=== PATIENT | male | born 1955 | race Caucasian/White ===

== ENCOUNTER 2022-07-13 06:55 | Day surgery (SDC) | payer BC ==
[2022-07-08 11:28] LABS: BASOPHILS # (AUTO) 0.1 X10'3 (0-0.2); BASOPHILS % (AUTO) 0.8 % (0-1); EOSINOPHILS # (AUTO) 0.1 X10'3 (0-0.9); EOSINOPHILS % (AUTO) 1.8 % (0-6); LYMPHOCYTES # (AUTO) 0.9 X10'3 (1.1-4.8); LYMPHOCYTES % (AUTO) 13.5 % (21-51); MEAN CORPUSCULAR HEMOGLOBIN 31.7 PG (27.0-31.0); MEAN CORPUSCULAR HGB CONC 33.2 g/dL (33.0-36.5); MEAN CORPUSCULAR VOLUME 95.6 FL (78-98); MEAN PLATELET VOLUME 9.2 FL (7.4-10.4); MONOCYTES # (AUTO) 0.7 X10'3 (0-0.9); NEUTROPHILS # (AUTO) 5.1 X10'3 (1.8-7.7); NEUTROPHILS % (AUTO) 73.9 % (42-75); PRE OP HEMATOCRIT 41.7 % (42.0-52.0); PRE OP HEMOGLOBIN 13.8 g/dL (14.0-17.9); PRE OP PLATELET COUNT 206 X10'3 (140-440); RED BLOOD COUNT 4.36 X10'6 (4.70-6.10); RED CELL DISTRIBUTION WIDTH 13.4 % (11.5-14.5)
[2022-07-08 11:44] LABS: ALBUMIN 3.9 G/DL (3.4-5.0); ALBUMIN/GLOBULIN RATIO 1.2 (1.1-1.5); ALKALINE PHOSPHATASE 93 IU/L (46-116); BLOOD UREA NITROGEN 20 MG/DL (7-18); BUN/CREATININE RATIO 22.2 (10.0-20.0); CALCIUM 9.5 MG/DL (8.5-10.1); CHLORIDE 104 MMOL/L (99-107); PRE OP ALT 32 U/L (30-65); PRE OP ANION GAP 4 (8-16); PRE OP AST 25 U/L (10-37); PRE OP BILIRUB, TOTAL 0.6 MG/DL (0.0-1.0); PRE OP GLUCOSE 140 MG/DL (70-104); PRE OP POTASSIUM 3.6 MMOL/L (3.4-5.1); PRE OP SODIUM 139 MMOL/L (135-145); TOTAL CARBON DIOXIDE 30.8 MMOL/L (24-32); TOTAL PROTEIN 7.1 G/DL (6.4-8.2); eGFR 84 ML/MIN
[~2022-07-13] VITALS: Ht 172.7 cm; Wt 90.6 kg
[~2022-07-13 06:55] MED LIST: AMLO10TA13 PO; ATOR20TA66 PO; BUPIVAcaine/PF 2.5mg/ml (0.25%) 10ml vial ONE; CLOP75TA34 PO; DOCUMENT DATE & TIME OF BETA-BLOCKER PO ONE; GLUCOSAMINE; LOSA1TAB39 PO; METO50TA16 PO; MULTIVITAMIN; QUINOL; [UNRECOGNIZED DRUG - CODE] PO; cefazolin 2gm/D5W 100mL 100 ML IV ONE; famotidine 20mg tablet PO ONE; ringers solution, lacted 1,000 ML IV SCH
[2022-07-13 07:30] VITALS: BP 127/74
[2022-07-13] MEDS ORDERED: morphine 4 MG/ML inj SYRINge IV PRN (07:55)
[2022-07-13] MEDS ORDERED: proCHLORperazine 10 MG/2 ml inj IV PRN (07:55)
[2022-07-13] MEDS ORDERED: meperidine/PF 25mg/ml syringe IV PRN ×3 (07:55)
[2022-07-13] MEDS ORDERED: morphine 2 MG/ML inj. syringe IV PRN (07:55)
[2022-07-13] MEDS ORDERED: ringers solution, lacted 1,000 ML IV SCH (07:55)
[2022-07-13] MEDS ORDERED: ondansetron/PF 4mg/2ml inj IV PRN (07:55)
[2022-07-13] MEDS ORDERED: LIDOcaine 0.5% (5mg/ml) 50ml vial ONE (09:38)
[2022-07-13] MEDS ORDERED: BUPIVAcaine/PF 2.5mg/ml (0.25%) 10ml vial IJ ONE (10:00)
[2022-07-13] MEDS ORDERED: fentaNYL/PF 50MCG/1 ML 2ML syringe ONE (10:05)
[2022-07-13] MEDS ORDERED: midazolam 1 mg/ML 2ml injection ONE (10:06)
[2022-07-13] MEDS ORDERED: propofol inj 20 ML IV ONE (10:30)
[2022-07-13 10:36] VITALS: BP 137/84
--- NOTE | 2022-07-13 10:36 | NUR ---
Received from OR via [facility], accompanied by Anesthesiologist and report given by Anesthesiolgist. DENIES PAIN. DRESSING TO RIGHT WRIST CDI, ICE APPLIED. 20G PIV TO LEFT HAND WITH LR INFUSING. VSS.
[2022-07-13 10:46] VITALS: BP 141/81
[2022-07-13 10:56] VITALS: BP 141/85
[2022-07-13 11:06] VITALS: BP 137/85
--- NOTE | 2022-07-13 11:08 | NUR ---
PATIENT MEETS DISCHARGE CRITERIA. DENIES PAIN. VSS. RIGHT DRESSING CDI, ICE IN PLACE. DISCHARGE INSTRUCTIONS REVIEWED. ALL BELONGINGS ACCOUNTED FOR. KIP IS RIDE HOME.
== END 2022-07-13 11:16 | disposition home or self-care (01) ==
LOC: PAS 06:55
PROVIDERS: ATTEND Orthopaedic Surgery Hand Surgery
DX: G56.01 Carpal tunnel syndrome, right upper limb (principal); G47.30 Sleep apnea, unspecified; E78.5 Hyperlipidemia, unspecified; I10 Essential (primary) hypertension; M17.0 Bilateral primary osteoarthritis of knee; Z98.890 Other specified postprocedural states; Z79.899 Other long term (current) drug therapy; Z87.891 Personal history of nicotine dependence; Z72.89 Other problems related to lifestyle; Z86.73 Personal history of transient ischemic attack (TIA), and cerebral infarction without residual deficits
CPT/HCPCS: 29848; 36415; 80053; 82948; 85025; 93005; J0690; J2250; J2704; J3010; J3490; J7030; J7120; Z7506; Z7512; A4215; A7000

== ENCOUNTER 2022-08-20 06:35 | Observation (INO) | payer BC ==
[2022-08-13 11:50] LABS: BASOPHILS # (AUTO) 0.1 X10'3 (0-0.2); BASOPHILS % (AUTO) 0.8 % (0-1); EOSINOPHILS # (AUTO) 0.1 X10'3 (0-0.9); LYMPHOCYTES % (AUTO) 14.5 % (21-51); MEAN CORPUSCULAR HEMOGLOBIN 31.7 PG (27.0-31.0); MEAN CORPUSCULAR HGB CONC 33.1 g/dL (33.0-36.5); MEAN CORPUSCULAR VOLUME 95.9 FL (78-98); MEAN PLATELET VOLUME 8.8 FL (7.4-10.4); MONOCYTES # (AUTO) 0.6 X10'3 (0-0.9); MONOCYTES % (AUTO) 8.7 % (2-12); NEUTROPHILS # (AUTO) 5.1 X10'3 (1.8-7.7); PRE OP HEMATOCRIT 42.8 % (42.0-52.0); PRE OP HEMOGLOBIN 14.1 g/dL (14.0-17.9); PRE OP PLATELET COUNT 235 X10'3 (140-440); RED BLOOD COUNT 4.46 X10'6 (4.70-6.10); RED CELL DISTRIBUTION WIDTH 13.5 % (11.5-14.5)
[2022-08-13 11:57] LABS: ALBUMIN 3.9 G/DL (3.4-5.0); ALBUMIN/GLOBULIN RATIO 1.1 (1.1-1.5); ALKALINE PHOSPHATASE 91 IU/L (46-116); BLOOD UREA NITROGEN 18 MG/DL (7-18); BUN/CREATININE RATIO 18.4 (10.0-20.0); CALCIUM 9.3 MG/DL (8.5-10.1); CHLORIDE 104 MMOL/L (99-107); CREATININE 0.98 MG/DL (0.60-1.10); PRE OP ALT 31 U/L (30-65); PRE OP ANION GAP 8 (8-16); PRE OP AST 20 U/L (10-37); PRE OP BILIRUB, TOTAL 0.6 MG/DL (0.0-1.0); PRE OP GLUCOSE 154 MG/DL (70-104); PRE OP POTASSIUM 3.9 MMOL/L (3.4-5.1); PRE OP SODIUM 140 MMOL/L (135-145); TOTAL CARBON DIOXIDE 28.5 MMOL/L (24-32); TOTAL PROTEIN 7.4 G/DL (6.4-8.2); eGFR 76 ML/MIN
[2022-08-20] VITALS (19 sets, daily range): BP systolic 105–158; BP diastolic 56–84
[~2022-08-20] VITALS: Ht 172.7 cm; Wt 89.2 kg
[~2022-08-20 06:35] MED LIST changes: -BUPIVAcaine/PF 2.5mg/ml (0.25%) 10ml vial ONE; +acetaminophen 325mg tablet PO ONE; +celeCOXIB 100mg capsule PO ONE; +gabapentin 300mg capsule PO ONE; +metoclopramide 5 mg/ml inj IV ONE; +oxyCODONE SR 10mg (sust. release) tab -2 tabs (20mg) PO ONE; +tranexamic acid inj. 1,000 MG in normal saline IV soln 100ML IV ONE; +vancomycin 1,500 MG in NS 300ml IV soln IV ONE
--- NOTE | 2022-08-20 06:45 | NUR ---
CSM: Pedal pulses present and marked. Mupirocin cream was not ordered for this patient. Patient read the brochure. Educated patient on the use of the IS and its importance. Hibiclens used for 5 days.
[2022-08-20] MEDS ORDERED: diphenhydrAMINE 25mg capsule PO PRN ×2 (07:30)
[2022-08-20] MEDS ORDERED: ondansetron/PF 4mg/2ml inj IV PRN ×2 (07:30→11:10)
[2022-08-20] MEDS ORDERED: magnesium hydroxide 30ml (MOM) UD suspension PO PRN (07:30)
[2022-08-20] MEDS ORDERED: acetaminophen 325mg tablet PO PRN (07:30)
[2022-08-20] MEDS ORDERED: naloxone 0.4 mg/ml inj IV PRN (07:30)
[2022-08-20] MEDS ORDERED: HYDROcodone/acetaminophen 10/325mg tab PO PRN (07:30)
[2022-08-20] MEDS ORDERED: HYDROmorphone inj. 0.5 MG/0.5 ML DISP.SYRIN IV PRN (07:30)
[2022-08-20] MEDS ORDERED: bisacodyl 10mg suppository rectal RC PRN (07:30)
[2022-08-20] MEDS ORDERED: vancomycin 1,000mg inj ONE (09:12)
[2022-08-20] MEDS ORDERED: MIDAZolam 1 MG/ML 5ML VIAL ONE (10:11)
[2022-08-20] MEDS ORDERED: fentaNYL/PF 50MCG/1 ML 2ML syringe ONE (10:11)
[2022-08-20] MEDS ORDERED: ROPIVAcaine 0.2% (10 MG/5 ML) BOLUS INJECTION ADDCANAL PRN (11:10)
[2022-08-20] MEDS ORDERED: proCHLORperazine 10 MG/2 ml inj IV PRN (11:10)
[2022-08-20] MEDS ORDERED: morphine 2 MG/ML inj. syringe IV PRN (11:10)
[2022-08-20] MEDS ORDERED: morphine 4 MG/ML inj SYRINge IV PRN (11:10)
[2022-08-20] MEDS ORDERED: ringers solution, lacted 1,000 ML IV SCH (11:10)
[2022-08-20] MEDS ORDERED: meperidine/PF 25mg/ml syringe IV PRN ×3 (11:10)
[2022-08-20] MEDS ORDERED: diphenhydrAMINE 50 mg/ml inj ONE (12:24)
[2022-08-20] MEDS ORDERED: ROPIVAcaine 0.5% (5mg/ml) 30ml vial ONE (12:24)
[2022-08-20] MEDS ORDERED: propofol inj 20 ML IV ONE (12:24)
[2022-08-20] MEDS ORDERED: dexamethasone sod phosphate 4mg/ml inj. ONE (12:24)
--- NOTE | 2022-08-20 12:30 | NUR ---
Received from OR via BED, accompanied by Anesthesiologist and report given by Anesthesiologist. PATIENT WAKING UP, NO S/S OF PAIN, V/S WNL, SCD ON, 20G TO LUE, YOLI drsg to RIGHT KNEE CDI with ON Q BALL AT 2ML/HR.
[2022-08-20] MEDS: ROPIVAcaine 0.2%/PF PUMP/bolus 545 ML ADDCANAL SCH (12:44)
[2022-08-20] MEDS ORDERED: tranexamic acid inj. 880 MG in normal saline 100ml IV soln 91.2 ML IV ONE (14:00)
--- NOTE | 2022-08-20 14:10 | NUR ---
PATIENT MEETS DISCHARGE CRITERIA. VSS. IV IN RFA 20 NO ISSUES. PATIENT ON 1 LITER O2 AT 96%. GAVE REPORT TO SHY ON ORTHO. ANOTHER RN TOOK PATIENT TO THE FLOOR
--- NOTE | 2022-08-20 14:46 | NUR ---
Patient in room PAS IN 900. I have received report from muna quiroz and had the opportunity to ask questions and assume patient care.
[2022-08-20] MEDS: HYDROcodone/acetaminophen 10/325mg tab PO PRN ×2 (15:41→20:02)
--- NOTE | 2022-08-20 15:56 | NUR ---
PER [facility] OR PT HAD IN THE SURGICAL SITE TRANSENAMIC ABOUT 11 AM, PT IS GOOD FOR HIS NEXT DOSE PER 3 HRS APART
--- NOTE | 2022-08-20 16:36 | NUR ---
per dr bryan pt can have tranexamic acid second dose, he had put order in stated.
[2022-08-20] MEDS: HYDROmorphone 1 mg/ml syringe IV PRN ×2 (17:51→23:15)
--- NOTE | 2022-08-20 18:13 | NUR ---
Problems reprioritized. Patient report given, questions answered & plan of care reviewed with harry quiroz.
[2022-08-20] MEDS: potassium cl 20mEq in 1/2 NS 1,000 ML IV SCH ×2 (19:57→21:00)
[2022-08-20] MEDS ORDERED: VANCOMYCIN 1,500MG inj. 1,500 MG in normal saline 500ml IV soln 300 ML IV ONE (20:00)
[2022-08-20] MEDS: ascorbic acid 500mg tablet PO SCH (20:02)
[2022-08-20] MEDS: metoprolol tartrate 50mg tablet PO SCH (20:03)
[2022-08-20] MEDS: gabapentin 300mg capsule PO SCH (20:03)
[2022-08-20] MEDS ORDERED: atorvastatin 20mg tablet PO SCH (21:00)
[2022-08-20] MEDS ORDERED: sennosides 8.6mg tablet PO SCH (21:00)
[2022-08-20] MEDS ORDERED: amLODIPine 5mg tablet PO SCH (21:00)
--- NOTE | 2022-08-21 00:56 | NUR ---
lenghtly discussion about pain medication, narcotics and non-narcotics, timing, and patient's need to notify nursing if he needs pain medication. pt had pain of zero and still wanted norco "b/c you told me i had to stay up on my pills". pt seems frustrated with education. will continue to follow up with patient and his pain levels. pt ok with being woken up at 0200 to see about pain levels.
[2022-08-21 01:15] VITALS: BP 161/84
[2022-08-21] MEDS: potassium cl 20mEq in 1/2 NS 1,000 ML IV SCH (05:00)
[2022-08-21] MEDS: metoprolol tartrate 50mg tablet PO SCH (05:33)
[2022-08-21 06:00] VITALS: BP 168/106
--- NOTE | 2022-08-21 06:00 | NUR ---
reported to days. noted pt anxious to get out of bed with PT. norco given for pre-pt pain. using IS well. pt has 15 stairs but has a chair in living room he can sleep on. SL IV for PT to walk with him. noted has one more abx
[2022-08-21] MEDS: gabapentin 300mg capsule PO SCH ×2 (07:20→12:55)
[2022-08-21] MEDS: ascorbic acid 500mg tablet PO SCH (07:22)
[2022-08-21 07:37] LABS: BASOPHILS % (AUTO) 0.1 % (0-1); EOSINOPHILS % (AUTO) 0 % (0-6); HEMATOCRIT 39.8 % (42.0-52.0); HEMOGLOBIN 13.3 g/dl (14.0-17.9); LYMPHOCYTES # (AUTO) 0.4 X10'3 (1.1-4.8); LYMPHOCYTES % (AUTO) 4.5 % (21-51); MEAN CORPUSCULAR HGB CONC 33.5 g/dL (33.0-36.5); MEAN CORPUSCULAR VOLUME 95.6 FL (78-98); MEAN PLATELET VOLUME 9.7 FL (7.4-10.4); MONOCYTES # (AUTO) 1.1 X10'3 (0-0.9); MONOCYTES % (AUTO) 11.9 % (2-12); NEUTROPHILS # (AUTO) 7.4 X10'3 (1.8-7.7); NEUTROPHILS % (AUTO) 83.5 % (42-75); PLATELET COUNT 180 X10'3 (140-440); RED BLOOD COUNT 4.16 X10'6 (4.70-6.10); RED CELL DISTRIBUTION WIDTH 13.2 % (11.5-14.5); WHITE BLOOD COUNT 8.8 X10'3 (4.5-11.0)
[2022-08-21 07:59] LABS: ANION GAP 11 (8-16); CHLORIDE 99 MMOL/L (99-107); POTASSIUM 3.8 MMOL/L (3.5-5.1); SODIUM 136 MMOL/L (135-145); TOTAL CARBON DIOXIDE 26.3 MMOL/L (24-32)
[2022-08-21] MEDS ORDERED: clopidogrel 75mg tablet PO SCH (08:00)
[2022-08-21] MEDS ORDERED: HYDROchlorothiazide 25mg tablet PO SCH (08:00)
[2022-08-21] MEDS ORDERED: losartan 50mg tablet PO SCH (08:00)
[2022-08-21] MEDS ORDERED: multivitamins, therapeutics tablet PO SCH (08:00)
[2022-08-21] MEDS ORDERED: aspirin 325mg tablet PO SCH (08:30)
[2022-08-21] MEDS: HYDROcodone/acetaminophen 10/325mg tab PO PRN ×2 (09:15→12:56)
[2022-08-21 10:00] VITALS: BP 132/76
--- NOTE | 2022-08-21 11:14 | NUR ---
Per EMR pt s/p right TKA. Written high protein nutrition therapy education with ONS coupons and RD contact information mailed to patient's home address found in EMR d/t short staffing. Will f/u for verbal education as able. Addendum: 08/21/22 at [address] Amended: Links added.
[2022-08-21] MEDS: ROPIVAcaine 0.2%/PF PUMP/bolus 545 ML ADDCANAL SCH (15:06)
--- NOTE | 2022-08-21 15:24 | NUR ---
patient discharged in stable condition to home with . educated on post of follow up/discharge instructions. Iv removed tip intact no complications. belongings sent with pt.
[2022-08-21] MEDS ORDERED: celeCOXIB 100mg capsule PO SCH (20:00)
== END 2022-08-21 15:16 | disposition home or self-care (01) ==
LOC: PAS 06:35 → PAS IN 14:24 → ORTHO 4S 14:37
PROVIDERS: ADMIT Orthopaedic Surgery; ATTEND Orthopaedic Surgery
DX: M17.11 Unilateral primary osteoarthritis, right knee (principal); D62 Acute posthemorrhagic anemia; G56.02 Carpal tunnel syndrome, left upper limb; G56.01 Carpal tunnel syndrome, right upper limb; M75.122 Complete rotator cuff tear or rupture of left shoulder, not specified as traumatic; M24.112 Other articular cartilage disorders, left shoulder; M75.42 Impingement syndrome of left shoulder; M17.12 Unilateral primary osteoarthritis, left knee; I10 Essential (primary) hypertension; G47.33 Obstructive sleep apnea (adult) (pediatric); Z86.73 Personal history of transient ischemic attack (TIA), and cerebral infarction without residual deficits; Z79.899 Other long term (current) drug therapy; Z87.891 Personal history of nicotine dependence; Z96.651 Presence of right artificial knee joint
CPT/HCPCS: 27447; 36415; 73560; 80051; 80053; 82948; 85025; 86885; 86900; 86901; 87081; 96365; 96366; 96367; 96368; 96375; 96376; 97116; 97161; 97530; C1713; C1776; G0378; J0690; J1100; J1170; J1200; J2250; J2704; J2765; J2795; J3010; J3370; J3480; J3490; J7040; J7060; J7120; A4215; A4615; A7000